=== PATIENT | female | born 1995 | race African-American/Black ===

== ENCOUNTER 2021-05-01 23:35 | Inpatient (IN) | payer MEDICAID, OTHER ==
[~2021-05-01] VITALS: Ht 160 cm; Wt 63.5 kg
[2021-05-02] MEDS ORDERED: CARBOPROST TROMETHAMINE 250 MCG/ML AMPUL IM PRN (00:30)
[2021-05-02] MEDS ORDERED: LIDOCAINE HCL 1% 20ML VIAL (Pyxis) INJ INFIL SCH (00:30)
[2021-05-02] MEDS ORDERED: DEXT 5%/LR + PITOCIN 20UNITS/L 1,000 ML IV SCH ×2 (00:30→06:00)
[2021-05-02] MEDS ORDERED: PENICILLIN G POTASSIUM 5 MMU in DEXT 5% WATER 100 ML IV SCH (00:30)
[2021-05-02] MEDS ORDERED: METHYLERGONOVINE MALEATE 0.2 MG/ML IM PRN (00:30)
[2021-05-02] MEDS ORDERED: MISOPROSTOL 200MCG TABLET VG NR (00:30)
[2021-05-02] MEDS ORDERED: BUTORPHANOL TARTRATE 2 MG/ML VIAL IV PRN ×2 (00:30→04:30)
[2021-05-02] MEDS: LACTATED RINGERS 1,000 ML IV SCH ×2 (00:41→00:42)
[2021-05-02 00:47] LABS: BASOPHILS % 0.6 % (0.0-2.0); EOSINOPHILS % 0.8 % (0.0-5.0); HEMATOCRIT. 31.1 % (36.0-48.0); HEMOGLOBIN. 10.6 g/dL (12.0-16.0); LYMPHOCYTES % 40.5 % (20.0-50.0); MEAN CORPUSCULAR HEMOGLOBIN 32.1 pg (28.0-32.0); MEAN CORPUSCULAR VOLUME 94.4 fL (81.0-99.0); MEAN PLATELET VOLUME 9.3 fl (7.4-10.4); MONOCYTES % 7.5 % (2.0-8.0); NEUTROPHILS % 50.6 % (40.0-76.0); PLATELET 170 x1000/uL (130-400)
[2021-05-02 00:54] LABS: CHLORIDE 107 mEq/L (98-107)
[2021-05-02 01:03] LABS: CLARITY URINE CLEAR (CLEAR); COLOR URINE YELLOW (YELLOW); KETONES URINE TRACE (NEGATIVE); LEUKOCYTE ESTERASE URINE TRACE (NEGATIVE); NITRITE URINE NEGATIVE (NEGATIVE); OCCULT BLOOD URINE 2+ (NEGATIVE); PH URINE 6.5 (4.5-8.0); PROTEIN URINE TRACE (NEGATIVE); SPECIFIC GRAVITY URINE 1.014 (1.005-1.030); UROBILINOGEN URINE 0.2 E.U./dL (0.2-1.0)
[2021-05-02 01:16] LABS: *AMPHETAMINES SCREEN URINE NEGATIVE (NEGATIVE); *BARBITURATES SCREEN URINE NEGATIVE (NEGATIVE); *BENZODIAZEPINES SCREEN URINE NEGATIVE (NEGATIVE); *COCAINE SCREEN URINE NEGATIVE (NEGATIVE)
[2021-05-02 01:17] LABS: METHADONE URINE SCREEN NEGATIVE (NEGATIVE); OPIATES URINE SCREEN NEGATIVE (NEGATIVE); PHENCYCLIDINE URINE SCREEN NEGATIVE (NEGATIVE)
[2021-05-02 01:19] LABS: CANNABINOID URINE SCREEN PRESUMTIVE POSITIVE (NEGATIVE)
[2021-05-02] MEDS ORDERED: ROPIVACAINE HCL/PF EPIDURAL 200 ML EPI SCH (01:30)
[2021-05-02] MEDS ORDERED: FENTANYL CITRATE/PF 50MCG/ML 2ML VIAL ONE (03:39)
[2021-05-02] MEDS ORDERED: MORPHINE SULFATE/PF 1MG/ML 10ML AMP ONE (03:39)
[2021-05-02] MEDS ORDERED: OXYTOCIN 10 UNITS/ML 1ML ONE (03:54)
[2021-05-02] MEDS ORDERED: CEFAZOLIN SODIUM 1000MG/VIAL ONE (03:54)
[2021-05-02] MEDS ORDERED: CITRIC ACID/SODIUM CITRATE SOLN 30ML UDC PO NR (04:00)
[2021-05-02] MEDS ORDERED: ONDANSETRON HCL 4MG/2ML INJ ONE (04:02)
[2021-05-02] MEDS ORDERED: LIDOCAINE HCL/PF 2% 20MG/ML 5 ML/VIAL ONE (04:04)
[2021-05-02] MEDS ORDERED: MIDAZOLAM HCL 2 MG/2 ML VIAL ONE (04:13)
[2021-05-02] MEDS ORDERED: KETAMINE HCL 50 MG/ML 10ML ONE (04:14)
[2021-05-02] MEDS ORDERED: DIPHENHYDRAMINE 50MG/ML VIAL ONE (04:25)
[2021-05-02] MEDS ORDERED: KETOROLAC 60MG/2ML VIAL IM ONE (04:25)
[2021-05-02] MEDS ORDERED: NALOXONE HCL 0.4 MG/ML 1ML VIAL IV PRN (04:30)
[2021-05-02] MEDS ORDERED: DIPHENHYDRAMINE 50MG/ML VIAL IV PRN (04:30)
[2021-05-02] MEDS ORDERED: KETOROLAC 30MG/ML VIAL IV SCH ×2 (04:30→15:30)
[2021-05-02] MEDS ORDERED: PENICILLIN G POTASSIUM 2.5 MMU in DEXTROSE 5% WATER 50 ML IV SCH (05:00)
[2021-05-02] MEDS ORDERED: RHO(D) IMMUNE GLOBULIN 300 MCG/SYR IM PRN (05:15)
[2021-05-02] MEDS ORDERED: HYDROCODONE/ACETAMINOPHEN 5/325MG TABLET PO PRN (05:15)
[2021-05-02] MEDS ORDERED: LANOLIN OINT 7GM TUBE TOP PRN (05:15)
[2021-05-02] MEDS ORDERED: IBUPROFEN 400MG TABLET PO PRN (05:15)
[2021-05-02] MEDS ORDERED: ONDANSETRON HCL 4MG/2ML INJ IV PRN (05:15)
[2021-05-02 06:30] VITALS: BP 125/78
[2021-05-02 06:45] LABS: PROTHROMBIN TIME 10.7 sec (9.6-11.0)
[2021-05-02 06:59] VITALS: BP 128/70
[2021-05-02 08:10] VITALS: BP 127/76
[2021-05-02 12:00] VITALS: BP 118/65
[2021-05-02 12:43] LABS: HEPATITIS B SURFACE ANTIGEN NEGATIVE
[2021-05-02 16:00] VITALS: BP 119/63
[2021-05-02] MEDS: PRENATAL VIT/FE FUMARATE/FA TABLET PO SCH (16:39)
[2021-05-02 20:00] VITALS: BP 125/60
[2021-05-02] MEDS: DOCUSATE SODIUM 100MG CAPSULE PO SCH (21:22)
[2021-05-02] MEDS: ACETAMINOPHEN WITH CODEINE 300/30MG TABLET PO PRN (22:49)
[2021-05-03 04:30] VITALS: BP 124/76
[2021-05-03] MEDS: ACETAMINOPHEN WITH CODEINE 300/30MG TABLET PO PRN ×3 (04:47→20:49)
[2021-05-03 07:32] LABS: BASOPHILS % 0.2 % (0.0-2.0); EOSINOPHILS % 0.4 % (0.0-5.0); LYMPHOCYTES % 11.7 % (20.0-50.0); MEAN CORPUSCULAR HEMOGLOBIN 31.7 pg (28.0-32.0); MEAN CORPUSCULAR VOLUME 94.9 fL (81.0-99.0); MEAN PLATELET VOLUME 9.3 fl (7.4-10.4); MONOCYTES % 6.8 % (2.0-8.0); NEUTROPHILS % 80.9 % (40.0-76.0); PLATELET 110 x1000/uL (130-400); RED BLOOD CELL COUNT 2.04 mill/uL (4.2-5.4); RED CELL DISTRIBUTION WIDTH 15.7 % (11.6-14.6)
[2021-05-03 07:52] LABS: HEMOGLOBIN. 6.5 g/dL (12.0-16.0)
[2021-05-03 07:53] LABS: HEMATOCRIT. 19.4 % (36.0-48.0)
[2021-05-03 08:00] VITALS: BP 128/69
[2021-05-03] MEDS: PRENATAL VIT/FE FUMARATE/FA TABLET PO SCH (09:02)
[2021-05-03] MEDS: FERROUS SULFATE 325MG TABLET PO SCH ×2 (14:30→17:30)
[2021-05-03 16:00] VITALS: BP 127/78
[2021-05-03 20:00] VITALS: BP 126/78
[2021-05-03] MEDS: DOCUSATE SODIUM 100MG CAPSULE PO SCH (20:49)
[2021-05-04] MEDS: ACETAMINOPHEN WITH CODEINE 300/30MG TABLET PO PRN ×2 (02:10→09:12)
[2021-05-04 04:00] VITALS: BP 128/62
[2021-05-04 07:19] LABS: BASOPHILS % 0.3 % (0.0-2.0); EOSINOPHILS % 0.7 % (0.0-5.0); LYMPHOCYTES % 20.5 % (20.0-50.0); MEAN CORPUSCULAR HEMOGLOBIN 31.8 pg (28.0-32.0); MEAN CORPUSCULAR VOLUME 95.7 fL (81.0-99.0); MEAN PLATELET VOLUME 8.8 fl (7.4-10.4); MONOCYTES % 5.8 % (2.0-8.0); NEUTROPHILS % 72.7 % (40.0-76.0); PLATELET 136 x1000/uL (130-400); RED CELL DISTRIBUTION WIDTH 15.6 % (11.6-14.6)
[2021-05-04 07:30] LABS: HEMATOCRIT. 19.1 % (36.0-48.0); HEMOGLOBIN. 6.4 g/dL (12.0-16.0)
[2021-05-04] MEDS ORDERED: FERR325T6 MT (08:09)
[2021-05-04] MEDS ORDERED: IBUP-2029 MT (08:09)
[2021-05-04] MEDS ORDERED: PREN1TAB23 MT (08:09)
[2021-05-04 08:30] VITALS: BP 116/74
[2021-05-04] MEDS ORDERED: BISACODYL 10MG SUPP PR NR (09:00)
[2021-05-04] MEDS: PRENATAL VIT/FE FUMARATE/FA TABLET PO SCH (09:12)
[2021-05-04] MEDS: FERROUS SULFATE 325MG TABLET PO SCH (09:12)
== END 2021-05-04 13:55 | disposition home or self-care (01) | DRG 540 ==
LOC: OBSVTOIN 23:35 → 8 EST LDRP 23:35 → 8EST 05-02 08:12
PROVIDERS: ADMIT Obstetrics & Gynecology; ATTEND Obstetrics & Gynecology
PROC: 10D00Z1 Extraction of Products of Conception, Low, Open Approach (ICD-10-PCS; principal; 2021-05-02)
DX: O76 Abnormality in fetal heart rate and rhythm complicating labor and delivery (principal); O99.324 Drug use complicating childbirth; Z37.0 Single live birth; Z3A.38 38 weeks gestation of pregnancy; F12.10 Cannabis abuse, uncomplicated; O69.81X0 Labor and delivery complicated by cord around neck, without compression, not applicable or unspecified; Z20.822 Contact with and (suspected) exposure to COVID-19; O90.81 Anemia of the puerperium
CPT/HCPCS: 36415; 76805; 76818; 80053; 80305; 80349; 81003; 84550; 85025; 86592; 86703; 86762; 86850; 86870; 86900; 87340; 87426; 88307; 99281; J0690; J1200; J1885; J2250; J2274; J2405; J2540; J2590; J2795; J3010; J3490; J7060; J7120

== ENCOUNTER 2024-07-21 17:26 | Emergency (ER) | payer OTHER ==
[~2024-07-21] VITALS: Ht 162.6 cm; Wt 58.0 kg
[~2024-07-21 17:26] MED LIST: FERR325T6 MT; IBUP-2029 MT; PREN1TAB23 MT
[2024-07-21 17:34] VITALS: BP 105/70; TEMP 36.8; O2SAT 100
[2024-07-21 17:38] VITALS: PULSE 107; RESP 22; O2SAT 100
[2024-07-21] MEDS: ACETAMINOPHEN 325MG TABLET PO ONE (20:05)
[2024-07-21] MEDS: KETOROLAC 15MG/ML VIAL IM ONE (21:19)
[2024-07-21] MEDS: LIDOCAINE HCL/PF 1% 10 MG/ML 5ML VIAL INFIL ONE (22:00)
[2024-07-21] MEDS ORDERED: IBUP-2029 MT (22:48)
[2024-07-21] MEDS ORDERED: CYCL10TA21 MT (22:48)
== END 2024-07-21 23:01 | disposition home or self-care (01) ==
LOC: ER 17:26
DX: S01.81XA Laceration without foreign body of other part of head, initial encounter (principal); Z79.899 Other long term (current) drug therapy; V49.9XXA Car occupant (driver) (passenger) injured in unspecified traffic accident, initial encounter; Y93.89 Activity, other specified; Y92.89 Other specified places as the place of occurrence of the external cause; Y99.8 Other external cause status
CPT/HCPCS: 81025; 71045; 73562; 70450; 70486; 12011; 96372; 99285; J1885; Z7610